=== PATIENT | female | born 1990 | race Caucasian/White ===

== ENCOUNTER 2018-10-27 09:29 | Emergency (ER) | payer MEDICAID ==
[~2018-10-27] VITALS: Ht 162.6 cm; Wt 160.0 kg
[2018-10-27] MEDS ORDERED: KETOROLAC 30MG/ML VIAL IV STA (10:28)
[2018-10-27] MEDS ORDERED: ONDANSETRON HCL 4MG/2ML INJ IV STA (10:28)
[2018-10-27] MEDS ORDERED: SODIUM CHLORIDE 0.9% 1,000 ML IV ONE (10:28)
[2018-10-27 11:39] LABS: CLARITY URINE TURBID (CLEAR); COLOR URINE YELLOW (YELLOW); KETONES URINE NEGATIVE (NEGATIVE); LEUKOCYTE ESTERASE URINE 2+ (NEGATIVE); NITRITE URINE NEGATIVE (NEGATIVE); OCCULT BLOOD URINE 3+ (NEGATIVE); PH URINE 5.5 (4.5-8.0); PROTEIN URINE TRACE (NEGATIVE); SPECIFIC GRAVITY URINE 1.023 (1.005-1.030); UROBILINOGEN URINE 0.2 E.U./dL (0.2-1.0)
[2018-10-27 11:39] LABS: BASOPHILS % 0.5 % (0.0-2.0); EOSINOPHILS % 0.5 % (0.0-5.0); HEMATOCRIT. 40.1 % (36.0-48.0); HEMOGLOBIN. 13.6 g/dL (12.0-16.0); LYMPHOCYTES % 15.6 % (20.0-50.0); MEAN CORPUSCULAR HEMOGLOBIN 28.6 pg (28.0-32.0); MEAN CORPUSCULAR VOLUME 84.5 fL (81.0-99.0); MEAN PLATELET VOLUME 8.4 fl (7.4-10.4); MONOCYTES % 4.1 % (2.0-8.0); NEUTROPHILS % 79.3 % (40.0-76.0); PLATELET 307 x1000/uL (130-400); RED BLOOD CELL COUNT 4.75 mill/uL (4.2-5.4); RED CELL DISTRIBUTION WIDTH 13.6 % (11.6-14.6)
[2018-10-27 11:44] LABS: CHLORIDE 107 mEq/L (98-107)
[2018-10-27 12:42] VITALS: BP 130/72
== END 2018-10-27 12:44 | disposition home or self-care (01) ==
LOC: ER 09:29
DX: N23 Unspecified renal colic (principal); N30.00 Acute cystitis without hematuria; F31.9 Bipolar disorder, unspecified; Z88.0 Allergy status to penicillin
CPT/HCPCS: 36415; 74176; 80053; 81003; 81025; 85025; 96361; 96374; 96375; 99284; J1885; J2405; J7030; Z7610

== ENCOUNTER 2022-05-19 14:31 | Emergency (ER) | payer MEDICAID ==
[~2022-05-19] VITALS: Ht 162.6 cm; Wt 138.0 kg
[2022-05-19 14:53] VITALS: BP 138/78
[2022-05-19] MEDS ORDERED: LIDOCAINE 5% PATCH TOP SCH (17:30)
[2022-05-19] MEDS ORDERED: LIDO700A30 TP (19:24)
== END 2022-05-19 19:43 | disposition home or self-care (01) ==
LOC: ER 14:31
DX: M25.512 Pain in left shoulder (principal); E78.00 Pure hypercholesterolemia, unspecified; F31.9 Bipolar disorder, unspecified; Z88.0 Allergy status to penicillin
CPT/HCPCS: 73000; 73030; 99284